=== PATIENT | male | born 1985 | race Caucasian/White ===

== ENCOUNTER 2018-08-21 14:52 | Emergency (ER) | payer OTHER ==
[~2018-08-21] VITALS: Ht 190.5 cm; Wt 127.0 kg
[2018-08-21 15:01] VITALS: BP 155/90
[2018-08-21] MEDS ORDERED: ALEVE220 MG PO (15:06)
[2018-08-21] MEDS ORDERED: KEFLEX500 M2 PO (15:13)
== END 2018-08-21 15:21 | disposition home or self-care (01) ==
LOC: M.ERS 14:52
DX: L02.01 Cutaneous abscess of face (principal); L03.211 Cellulitis of face; F17.210 Nicotine dependence, cigarettes, uncomplicated